=== PATIENT | male | born 1970 | race Asian ===

== ENCOUNTER 2023-11-04 20:43 | Emergency (ER) | payer SELFPAY ==
[~2023-11-04] VITALS: Ht 157.5 cm; Wt 73.0 kg
[2023-11-04 20:47] VITALS: TEMP 98.8; O2SAT 99
[2023-11-04] MEDS: IBUPROFEN 400MG TABLET PO ONE (22:30)
[2023-11-04 23:43] VITALS: BP 123/87; PULSE 80; RESP 20; O2SAT 99
== END 2023-11-04 23:54 | disposition home or self-care (01) ==
LOC: ER 20:43
DX: M54.50 Low back pain, unspecified (principal)
CPT/HCPCS: 72100; 99283